=== PATIENT | female | born 1955 | race Caucasian/White ===

== ENCOUNTER → 2016-06-17 | Outpatient (CLI) | payer OTHER ==
[~2016-06-17] MED LIST: ALEN70TA4 PO; ASCO10003 PO; CONJ0.453 PO; GABA-112 PO; HYDR0.5T PO; IMT100 PO; MISCCAP80 PO; NORT10CA2 PO
--- NOTE | 2016-06-18 16:41 | MAMMOGRAPHY REPORT ---
BILATERAL DIGITAL SCREENING MAMMOGRAM TOMOSYNTHESIS WITH CAD: 06/17/2016 CLINICAL HISTORY: Routine screening. Patient has no complaints. TECHNIQUE: Breast tomosynthesis in addition to standard 2D mammography was performed. Current study was also evaluated with a Computer Aided Detection (CAD) system. COMPARISON: Comparison is made to exams dated: 05/20/2015 mammogram, 05/19/2013 mammogram - [facility], and 02/02/2008. BREAST COMPOSITION: The tissue of both breasts is heterogeneously dense, which may obscure small ma sses. FINDINGS: There is a possible round 8 mm mass within the right superior breast on the MLO view only , likely located laterally based on the tomosynthesis localizer bar. Recommend spot compression sylvia osynthesis views and possible breast ultrasound for further evaluation. The remainder of both breasts are stable compared to prior exams, without suspicious masses, calcifi cations, or areas of architectural distortion noted. Scattered bilateral benign-appearing calcifica tions are again noted. Left superior breast asymmetry is stable. IMPRESSION: ACR BI-RADS CATEGORY 0: INCOMPLETE EVALUATION: NEED ADDITIONAL IMAGING EVALUATION Possible right superior breast mass, for which additional imaging evaluation is recommended. The pa tient will be called to schedule an appointment. Approximately 10% of breast cancers are not detected with mammography. A negative mammographic repor t should not delay biopsy if a clinically suggestive mass is present. Oly Javier M.D. /:06/18/2016 16:12:53 Vest Front Presser: Cecile AKINS(Ashok)(Randal), [facility] letter sent: Addl Imaging 0 BI-RADS Code: ACR BI-RADS Category 0: Incomplete Evaluation: Need Additional Imaging Evaluation
== END | disposition home or self-care (01) ==
LOC: C.MAMM 17:01
PROVIDERS: ATTEND Obstetrics & Gynecology
DX: Z12.31 Encounter for screening mammogram for malignant neoplasm of breast (principal); N63 Unspecified lump in breast

== ENCOUNTER → 2016-07-02 | Outpatient (CLI) | payer OTHER ==
--- NOTE | 2016-07-02 12:37 | MAMMOGRAPHY REPORT ---
UNILATERAL RIGHT DIGITAL DIAGNOSTIC MAMMOGRAM TOMOSYNTHESIS AND TARGETED RIGHT ULTRASOUND: 07/02/2016 CLINICAL HISTORY: Callback from screening mammogram for right breast asymmetry. TECHNIQUE: Breast tomosynthesis in addition to standard 2D mammography was performed. Spot gisella mimi right CC and MLO 2-D and tomosynthesis images were obtained. COMPARISON: Comparison is made to exams dated: 06/17/2016 mammogram, 05/20/2015 mammogram, 3 mammogram - [facility], and 02/02/2008. BREAST COMPOSITION: The tissue of the right breast is heterogeneously dense, which may obscure smal l masses. FINDINGS: The previously described nodular asymmetry seen within the right superior breast on the ML O view does not clearly persist on the spot compression views, although it could be obscured by supe rimposed breast tissue. No suspicious masses or areas of architectural distortion are noted on the additional views. Targeted ultrasound was performed of the right upper outer quadrant in the region of the mammographi c asymmetry. In the right breast at 10:00, 2 cm from the nipple, there is an oval anechoic circumsc ribed 5 x 3 x 4 mm mass, consistent with a benign simple cyst. In the right breast at 10:00, 6 cm f rom the nipple, there is an oval hypoechoic circumscribed 7 x 3 x 5 mm mass, which is probably benig n and may represent a complicated cyst versus a solid mass such as fibroadenoma. In the right breas t at 10:00, 5 cm from the nipple, there is an oval anechoic circumscribed 2 x 3 mm masses, consisten t with a benign simple cyst. In the right breast at 9:00, 8 cm from the nipple, there is an oval ci rcumscribed anechoic mass with a few thin internal septations, measuring 6 x 3 x 5 mm. This is prob ably benign and likely represents a mildly complicated cyst. This mass may correlate with the initi al mammographic asymmetry. No suspicious solid masses were evident. IMPRESSION: ACR-BI-RADS CATEGORY 3: PROBABLY BENIGN, TARGETED ULTRASOUND ACR-BI-RADS CATEGORY 3: SC OBABLY BENIGN Multiple small circumscribed masses in the right upper outer quadrant on ultrasound, some of which a re benign simple cysts and others of which are probably benign and likely represent complicated cyst s. The right 9:00 complicated cyst may correspond with the initial mammographic asymmetry. Recomme nd follow-up diagnostic tomosynthesis mammograms and ultrasound of the right breast in 6 months to c onfirm stability. The patient has been verbally notified of the results. Approximately 10% of breast cancers are not detected with mammography. A negative mammographic repor t should not delay biopsy if a clinically suggestive mass is present. Oly Javier M.D. ah/:07/02/2016 08:39:17 Steam Bone Press Tender: Anitra AKINS(R)(M), [facility] letter sent: Follow Up Recommended 3 BI-RADS Code: ACR-BI-RADS Category 3: Probably Benign Ultrasound BI-RADS: ACR-BI-RADS Category 3: P robably Benign
== END | disposition home or self-care (01) ==
LOC: C.MAMM 08:08
PROVIDERS: ATTEND Obstetrics & Gynecology
DX: R92.8 Other abnormal and inconclusive findings on diagnostic imaging of breast (principal); N60.01 Solitary cyst of right breast

== ENCOUNTER → 2017-01-06 | Outpatient (CLI) | payer OTHER ==
--- NOTE | 2017-01-06 15:19 | MAMMOGRAPHY REPORT ---
UNILATERAL RIGHT DIGITAL DIAGNOSTIC MAMMOGRAM TOMOSYNTHESIS WITH CAD AND TARGETED RIGHT ULTRASOUND: CLINICAL HISTORY: Follow-up of an 8 mm nodular asymmetry in the posterior right breast, along the pos terior nipple line on the MLO view, and benign-appearing masses in the right upper outer quadrant on ultrasound. TECHNIQUE: Right breast tomosynthesis in addition to standard 2D mammography was performed. Current andriy casey was also evaluated with a Computer Aided Detection (CAD) system. COMPARISON: Comparison is made to exams dated: 07/02/2016 ultrasound, 07/02/2016 mammogram, 06/17/2016 ma mmogram, 05/20/2015 mammogram, 05/19/2013 mammogram - [facility], and 02/02/2008. BREAST COMPOSITION: The tissue of the right breast is heterogeneously dense, which may obscure small masses. FINDINGS: The previously observed 8mm nodular asymmetry in the posterior right breast, along the pos terior nipple line on the MLO view is less conspicuous comparing to the 06/17/2016 screening mammogra m. On the corresponding tomosynthesis images, no definite persistent mass is identified in that loca tion. No other obvious mass, focal area of architectural distortion or new suspicious microcalcifica tions are identified in the right breast. There are stable scattered groupings of faint punctate julio rocalcifications throughout the right breast. Targeted ultrasound was performed in the right upper outer quadrant. In the 10:00 axis, 610 m from t he nipple, there is an oval parallel circumscribed hypoechoic solid versus cystic mass measuring 4.1 x 2.9 x 4.9 mm. In the 9:00 axis, 610 m from the nipple, a lobulated anechoic benign simple cyst is identified measuring 4.7 x 2.7 x 3.8 mm. Another lobulated anechoic cyst is identified in the right 9:00 breast, 6 cm from the nipple, measuring 4.4 x 2.4 x 4.2 mm. No suspicious solid mass is identif ied. When comparing to the prior ultrasound, the mass in the 10:00 axis does not appear significantl y changed, given slight differences in measuring technique. It previously measured 6.7 x 2.6 x 4.9 m m. The mass in the 9:00 right breast, 6 cm from the nipple was previously labeled as 8 cm from the n ipple and this has slightly decreased in size, confirming benignity. IMPRESSION: ACR-BI-RADS CATEGORY 3: PROBABLY BENIGN, TARGETED ULTRASOUND ACR-BI-RADS CATEGORY 3: PRO BABLY BENIGN 1. Less conspicuous 8mm nodular asymmetry in the posterior right breast on the MLO view, without cor responding tomosynthesis abnormality, suggesting benignity. No other new suspicious abnormality is s een in the right breast mammographically. 2. There are scattered cysts in the right upper outer quadrant on ultrasound, compatible with fibroc ystic changes. One of the benign-appearing circumscribed parallel masses in the 10:00 axis appears m ore solid, and therefore longer stability is needed. Another six-month follow-up targeted right jeanne st ultrasound with attention to the 10:00 axis is recommended. 3. At the time of next six-month follow-up, bilateral mammography will also be due. These results and recommendations were discussed with the patient at the time of the exam. She tenta tively scheduled the appointment prior to leaving our department. Approximately 10% of breast cancers are not detected with mammography. A negative mammographic report should not delay biopsy if a clinically suggestive mass is present. Cindy Gaming M.D. ay/:01/06/2017 09:34:02 Net Developer: Padmini Richardson, [facility] letter sent: Follow Up Recommended 3 BI-RADS Code: ACR-BI-RADS Category 3: Probably Benign Ultrasound BI-RADS: ACR-BI-RADS Category 3: Pr obably Benign
== END | disposition home or self-care (01) ==
LOC: C.MAMM 08:09
PROVIDERS: ATTEND Obstetrics & Gynecology
DX: N64.89 Other specified disorders of breast (principal); N60.01 Solitary cyst of right breast

== ENCOUNTER → 2017-05-03 | Outpatient (CLI) | payer OTHER | END | disposition home or self-care (01) | LOC: C.MAMM 08:02 | PROVIDERS: ATTEND Obstetrics & Gynecology | DX: Z13.820 Encounter for screening for osteoporosis (principal); M85.851 Other specified disorders of bone density and structure, right thigh; M85.852 Other specified disorders of bone density and structure, left thigh ==

== ENCOUNTER → 2017-07-12 | Outpatient (CLI) | payer OTHER ==
[~2017-07-12] MED LIST changes: -ALEN70TA4 PO; +CHOL1000 PO; +DICL-201 PO; -NORT10CA2 PO; +voltaren gel
--- NOTE | 2017-07-12 14:51 | MAMMOGRAPHY REPORT ---
BILATERAL DIGITAL DIAGNOSTIC MAMMOGRAM TOMOSYNTHESIS WITH CAD AND TARGETED RIGHT ULTRASOUND: 8 CLINICAL HISTORY: 61-year-old woman presents for follow-up of probably benign findings identified in the right upper outer quadrant. She was initially called back from screening for an 8 mm round nodul ar asymmetry in the posterior right breast on the MLO view. Benign-appearing cystic and solid versus cystic masses were seen in the right upper outer quadrant on ultrasound. Also due for bilateral osvaldo ual exam. TECHNIQUE: Bilateral breast tomosynthesis in addition to standard 2D mammography was performed. Curre nt study was also evaluated with a Computer Aided Detection (CAD) system. COMPARISON: Comparison is made to exams dated: 01/06/2017 ultrasound, 01/06/2017 mammogram, 07/02/2016 m ammogram, 06/17/2016 mammogram, 05/20/2015 mammogram, and 05/19/2013 mammogram - [facility]. BREAST COMPOSITION: There are scattered areas of fibroglandular density in both breasts. FINDINGS: The previously observed 8mm nodular asymmetry in the posterior right breast along the poste rior nipple line on the MLO view is no longer seen, suggesting this could of represented normal overl apping tissue or a cyst that has decreased. Currently, no new suspicious masses, calcifications, are as of architectural distortion or asymmetries are seen bilaterally. There is a stable focal asymmetr y in the upper outer posterior left breast, that is unchanged dating back to at least 2007, therefore most likely the patient's baseline glandular pattern. Targeted ultrasound was performed in the upper outer quadrant of the right breast to reevaluate the b enign-appearing cystic and solid versus cystic masses, particularly in the 10:00 axis. In the right 10:00 axis, 67 m from the nipple, there is an oval parallel circumscribed hypoechoic solid appearing mass with thin tubular structure extending to the lateral aspect. This mass visually looks similar d ating back to at least 07/02/2016. It measures 4.5 x 2.3 x 4.6 mm. This has not significantly hoffmann ed dating back to the prior ultrasound from June 2016 at which time it measured 6.7 x 2.6 x 4.9 m m. Another 12 month follow-up is recommended to ensure at least 2 years of stability to confirm cruz gnity. No other suspicious solid or cystic mass is identified. Currently, there are fewer cysts in the 9:00 and 10:00 axes when comparing to the prior ultrasounds. IMPRESSION: ACR-BI-RADS CATEGORY 3: PROBABLY BENIGN, TARGETED ULTRASOUND ACR-BI-RADS CATEGORY 3: PRO BABLY BENIGN 1. An 8 mm rounded nodular asymmetry in the posterior right breast along the posterior nipple line o n the MLO view is no longer seen, confirming benignity. Currently, no suspicious mammographic abnorm ality is identified. 2. There is a stable benign-appearing solid, possibly intraductal mass in the 10:00 right breast, 6 cm from the nipple, that is unchanged in size dating back to at least 07/02/2016. Another 12 month f ollow-up targeted ultrasound is recommended to ensure at least 2 years of stability to confirm benign ity. These results and recommendations were discussed with the patient at the time of the exam. She tenta tively scheduled the follow-up appointment prior to leaving our department. Approximately 10% of breast cancers are not detected with mammography. A negative mammographic report should not delay biopsy if a clinically suggestive mass is present. Cindy Gaming M.D. ay/:07/12/2017 10:05:53 City Editor: Cecile SHARIF)(M), [facility] letter sent: Follow Up Recommended 3 BI-RADS Code: ACR-BI-RADS Category 3: Probably Benign Ultrasound BI-RADS: ACR-BI-RADS Category 3: Pr obably Benign
== END | disposition home or self-care (01) ==
LOC: C.MAMM 08:11
PROVIDERS: ATTEND Obstetrics & Gynecology
DX: N64.89 Other specified disorders of breast (principal); N63.10 Unspecified lump in the right breast, unspecified quadrant

== ENCOUNTER → 2017-12-20 | Outpatient (CLI) | payer OTHER | END | disposition home or self-care (01) | LOC: C.PAPS 10:41 | PROVIDERS: ATTEND Obstetrics & Gynecology | DX: Z12.4 Encounter for screening for malignant neoplasm of cervix (principal) ==

== ENCOUNTER 2018-09-05 07:55 | Observation (INO) ==
--- NOTE | 2018-08-16 09:07 | Anesthesiology Consultation ---
Date of Service August 16, 2018 Assessment & Plan (1) Encounter for pre-operative examination: Chart Review Chart Review: Acceptable Risk for Surgery and Patient NOT seen in Pre Admission Testing History Surgery Operation Date: 08/24/18 08:20 Proposed Procedures p Left Breast Lumpectomy with sentinel Lymph Node Biopsy (Injection Only) - Artem Boogie MD, FACS Height/Weight Height: 5 ft 8 in Weight: 78.925 kg Allergies Allergy/AdvReac Type Severity Reaction Status Date / Time Sulfa (Sulfonamide Allergy Severe severe Verified 08/03/18 16:00 Antibiotics) muscle cramping rofecoxib Allergy Mild SWELLING Verified 08/03/18 16:00 Medications Home Medications Medication Instructions Recorded Confirmed Last Taken ascorbic acid (vitamin C) 1,000 mg PO BID 08/03/18 08/03/18 Unknown cholecalciferol (vitamin D3) 1,000 unit PO QAM 08/03/18 08/03/18 Unknown [Vitamin D3] diclofenac sodium [Voltaren] 2 g TOPICAL UD PRN 08/03/18 08/03/18 Unknown gabapentin 200 mg PO BID 08/03/18 08/03/18 Unknown hydroxychloroquine [Plaquenil] 200 mg PO BID 08/03/18 08/03/18 Unknown lactobacillus combination no.4 3,000 mmu cells PO 3XWK 08/03/18 08/03/18 Unknown [Probiotic] naproxen [Naprosyn] 500 mg PO QAM 08/03/18 08/03/18 Unknown sumatriptan succinate 100 mg PO UD PRN 08/03/18 08/03/18 Unknown Past Medical History Medical History Cancer LEFT BREAST 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
[~2018-09-05 07:55] MED LIST changes: -ASCO10003 PO; +CEFAZOLIN 2000MG 2,000 MG/15 ML SYR IV SCH; -CHOL1000 PO; -CONJ0.453 PO; -DICL-201 PO; -GABA-112 PO; -HYDR0.5T PO; -IMT100 PO; +LR 15ML/HR IV SCH; -MISCCAP80 PO; -voltaren gel
--- NOTE | 2018-09-05 09:13 | Nuclear Medicine Report ---
NM sentinel node inject only (left breast) CLINICAL HISTORY: Left breast carcinoma COMPARISON STUDY: No previous studies for comparison. FINDINGS: A timeout was performed. The patient's left periareolar region was prepped. 5 periareolar intradermal injections were performed utilizing a total dose of 0.5 mCi of technetium 9 9m Lymphoseek. The patient was sent to the operating room for intraoperative localization. IMPRESSION: A left breast lymphoscintigraphy injection was performed Electronically signed by: Willy Quarles M.D. 09/05/2018 9:12 AM
[2018-09-05] MEDS ORDERED: NALOXONE HCL 0.4 MG/1 ML VIAL/CARP IV PRN (11:09)
[2018-09-05] MEDS ORDERED: ePHEDrine sulfate 50 MG/ML AMP IV PRN (11:09)
[2018-09-05] MEDS ORDERED: LABETALOL HCL IV 5 MG/ML 20ML IV PRN (11:09)
[2018-09-05] MEDS ORDERED: PROMETHAZINE HCL 12.5 MG in SODIUM CHLORIDE 0.9% 50 ML IV PRN ×2 (11:09→15:37)
[2018-09-05] MEDS ORDERED: ATROPINE SULFATE 0.1 MG/ML 10ML SYR IV PRN (11:09)
[2018-09-05] MEDS ORDERED: ONDANSETRON INJ 2 MG/ML 2 ML VIAL IV PRN ×2 (11:09→15:37)
[2018-09-05] MEDS ORDERED: FLUMAZENIL 0.1 MG/1 ML 10 ML VIAL IV PRN (11:09)
[2018-09-05] MEDS ORDERED: fentaNYL citrate 100 MCG/2 ML VIAL ONE ×2 (11:31→12:54)
[2018-09-05] MEDS ORDERED: MIDAZOLAM HCL 1 MG/ML 2ML VIAL ONE (11:31)
[2018-09-05] MEDS ORDERED: LIDOCAINE HCL 2% 2 ML VIAL/AMP(20MG/ML) INFIL ONE (11:33)
[2018-09-05] MEDS ORDERED: PROPOFOL IV EMULSION 10 MG/ML 20 ML VIAL IV ONE (11:33)
[2018-09-05] MEDS ORDERED: SCOPOLAMINE 1.5 MG TDSY ONE (11:40)
[2018-09-05] MEDS ORDERED: BUPIVACAINE 0.5 % 5 MG/1 ML MPF 30ML VIAL ONE (11:54)
[2018-09-05] MEDS ORDERED: ISOSULFAN BLUE 10 MG/ML VIAL 5 ML ONE (11:54)
[2018-09-05] MEDS ORDERED: METOCLOPRAMIDE HCL INJ 5 MG/ML 2 ML VIAL ONE (11:57)
[2018-09-05] MEDS ORDERED: ONDANSETRON INJ 2 MG/ML 2 ML VIAL ONE (11:57)
[2018-09-05] MEDS ORDERED: DEXAMETHASONE SOD INJ 4 MG/ML VIAL ONE (11:57)
[2018-09-05] MEDS ORDERED: raNITIdine HCl 25 MG/ML VIAL ONE (11:57)
[2018-09-05] MEDS ORDERED: METHYLENE BLUE 0.5% 10 ML VIAL ONE (12:02)
[2018-09-05] MEDS ORDERED: PHENYLEPHRINE HCL 10 MG/ML VIAL ONE (13:10)
[2018-09-05] MEDS ORDERED: ACETAMINOPHEN 1,000 MG/100 ML VIAL IV ONE ×2 (13:43→17:00)
--- NOTE | 2018-09-05 13:43 | Operative Report ---
Post Operative Report Pre & Post Diagnosis Operation Date: 09/05/18 12:10 Pre-Op Diagnosis: Left Breast Cancer Post-Op Diagnosis: Left Breast Cancer Procedure Operation Date: 09/05/18 12:10 Actual Procedures p Left Breast Lumpectomy with Crete Lymph Node Biopsy with Needle Localization(Left) - Artem Boogie MD, FACS Surgeon Artem Boogie MD, FACS Restuarant Crew Worker Randal Moore Estimated Blood Loss 20 Findings Consistent with Post-Op Diagnosis Specimens Lt axillary LN and Lt breast tissue Description of Procedure see dictation I attest to the content of the Intraoperative Record and any orders documented therein. Any exceptions are noted below.
[2018-09-05] MEDS: fentaNYL citrate 100 MCG/2 ML VIAL IV PRN ×4 (14:02→14:41)
--- NOTE | 2018-09-05 14:57 | Mammography Report ---
NEEDLE LOCALIZATION LEFT BREAST: 09/05/2018 CLINICAL HISTORY: 63-year-old woman with recent biopsy-proven carcinoma in the left 12:00 posterior b reast. She presents for preoperative localization prior to lumpectomy. Also history of benign biopsie s in the right 10:00 breast and left lower outer quadrant. COMPARISON: MRI guided biopsy and post procedure mammograms dated 08/31/2018, bilateral breast biopsie s and post procedure mammograms dated 07/22/2018, diagnostic mammograms and ultrasound 07/12/2018, 2017, 01/06/2017. PATIENT CONSENT: The risks of the procedure were explained to the patient and informed consent was ob tained. The patient denied eating or drinking anything this morning that would preclude anesthesia. She also denied allergy to lidocaine. A timeout was performed and the left breast was confirmed as a site for preoperative localization. PROCEDURE DESCRIPTION: Prior left breast imaging was reviewed, including diagnostic mammograms, ultra sound and ultrasound-guided core biopsy in which the left 12:00 breast mass was identified. The ribb on-shaped biopsy clip in the 12:00 posterior left breast is the intended target for preoperative loca lization. With the patient in the seated position, the left breast was placed in CC from above [facility]. A tomosynthesis copy was obtained which demonstrates the ribbon-shaped biopsy clip within th e localization window of an alphanumeric grid. The skin of the superior left breast was cleansed wit h alcohol. 1% buffered Lidocaine without epinephrine was administered as local anesthesia. A 7.5cm H awkins II needle and wire combination was inserted into the breast. Optimal positioning was confirmed and the wire was locked in place, leaving both the needle and wire within the breast, as per surgeon 's preference. The entire procedure including approach and needle length were discussed with the ope rating surgeon prior to surgery. The patient tolerated the procedure well and there was no immediate complication. She was escorted and transferred to the main hospital in satisfactory condition. A surgical specimen radiograph was obtained which demonstrates a portion of the localizing needle and wire as well as ribbon-shaped biopsy clip centrally within the specimen, consistent with successful preoperative localization and subsequent surgical excision. Final surgical pathology is pending. IMPRESSION: NEEDLE LOCALIZATION Status post preoperative needle and wire localization for biopsy-proven carcinoma in the 12:00 news agent ior left breast. The imaged specimen includes the intended abnormality. Cindy Gaming M.D. ay/:09/05/2018 13:30:55 Transmission Worker: RT Davis(Ashok)(M), [facility]
--- NOTE | 2018-09-05 14:57 | Mammography Report ---
SPECIMEN: 09/05/2018 CLINICAL HISTORY: Left breast surgical specimen. Please refer to the report from left breast needle localization performed at the same time for full d etail. IMPRESSION: SPECIMEN Please refer to the report from left breast needle localization performed at the same time for full d etail. Cindy Gaming M.D. ay/:09/05/2018 13:31:49 Tool And Die Maker/Designer: RT Davis(Ashok)(M), [facility]
--- NOTE | 2018-09-05 15:15 | Anesthesiology Progress Note ---
Date of Service September 05, 2018 Anesthesia Post Procedure Vital Signs Vital Signs: Temp Pulse Pulse Resp BP BP Pulse Ox 09/05/18 14:33 36.7 C 80 16 115/70 98 09/05/18 14:25 72 19 130/73 98 09/05/18 14:20 69 19 132/76 100 09/05/18 14:15 73 17 130/75 100 09/05/18 14:10 78 21 130/77 100 09/05/18 14:05 76 17 128/77 100 09/05/18 14:02 81 15 133/72 100 09/05/18 14:00 78 13 100 09/05/18 13:56 36.1 C L 80 82 16 121/53 L 121/53 L 100 09/05/18 13:55 19 96 09/05/18 09:22 36.4 C L 73 18 129/77 98 Pain Intensity Left Lateral Breast: Pain Intensity: 2 Notes Mental Status: alert / awake / arousable Patient Amnestic to Procedure: Yes Nausea / Vomiting: adequately controlled Pain: adequately controlled Airway Patency, RR, SpO2: stable & adequate BP & HR: stable & adequate Hydration State: stable & adequate Anesthetic Complications: no major complications apparent
--- NOTE | 2018-09-05 15:30 | Operative Report ---
DATE OF OPERATION: 09/05/2018 NAME OF OPERATION: Left lumpectomy with sentinel lymph node biopsy. PREOPERATIVE DIAGNOSIS: Left breast cancer. POSTOPERATIVE DIAGNOSIS: Left breast cancer. STAFF SURGEON: Artem Boogie MD FRAMING MACHINE TENDER: Fern Moore PA-C. ANESTHESIA: General. DESCRIPTION OF PROCEDURE: The patient was brought in the operating room and placed on the operating table in supine position. Her left arm was extended under an arm board. Her left breast and axilla were prepped and draped in usual fashion. She had a needle placed in the upper left breast and was injected for sentinel lymph node biopsy. My entry level administrative assistant, Fern Moore helped with prepping, draping, excision of the breast and axillary tissue and closure of the wounds. Initially, incision was made in the left axilla using 0.5% plain Marcaine to anesthetize the skin. Dissection was carried deeply down into the axilla, identifying the sentinel lymph node which was large. It was sent for frozen section. The frozen section was negative. During the frozen section, we performed lumpectomy making incision below where the needle had been placed transversely, carrying dissection down, identifying the needle and transecting the needle. The tissue then was dissected from around the needle down very deep, almost to the muscle. The initial tissue was taken with the needle anterior, the long silk suture lateral, short silk suture medial and plain suture was inferior. At this point, additional inferior tissue was taken which was where most of the more dense tissue was. This tissue was marked with a long silk suture lateral and short silk suture medial. This deep tissue on these specimens were taken down to the muscle. Additional superior tissue was taken, again marked with long silk suture lateral, short silk suture medial and methylene blue new margin. Again, taken down to the muscle. Clips were placed at the level where the tumor was near the muscle and then the deep tissue reapproximated using 2-0 plain suture in both places and then the skin in the left axilla using 4-0 nylon suture in the left breast using subcuticular 4-0 Monocryl and Steri-Strips applied. The patient was transferred to recovery room in stable condition. I attest to the content of the Intraoperative Record and any orders documented therein. Any exception s are noted below.
[2018-09-05] MEDS ORDERED: ACETAMINOPHEN 325 MG TAB PO PRN (15:37)
[2018-09-05] MEDS ORDERED: PROMETHAZINE HCL 25 MG in SODIUM CHLORIDE 0.9% 50 ML IV PRN (15:37)
[2018-09-05] MEDS ORDERED: TRAMADOL HCL 50 MG TABLET PO PRN (15:37)
[2018-09-05] MEDS ORDERED: HYDROmorphone INJ 0.5 MG/0.5 ML SYR IV PRN (15:37)
[2018-09-05] MEDS ORDERED: HYDROmorphone INJ 1 MG/ML SYRINGE IV PRN (15:37)
[2018-09-05] MEDS ORDERED: SODIUM CHLORIDE 0.9% 1000ML 1,000 ML IV SCH ×2 (16:00→16:15)
--- NOTE | 2018-09-05 17:27 | Consultation ---
Date of Consultation September 05, 2018 Assessment & Plan (1) History of lumpectomy of left breast: Status post left breast lumpectomy and sentinel lymph node dissection on 09/05 Postoperatively doing very well -IV fluids as per surgery -Postoperative management as per surgery -Pain control with Tylenol and ibuprofen as needed, tramadol as needed Antiemetics as needed Wound care as per surgery -Await pathology (2) Breast cancer: Infiltrating ductal carcinoma left breast, estrogen and progesterone receptor positive current HER-2 negative -Continue follow-up with surgeon and/or oncology (3) Migraine: Ibuprofen as needed, no current migraine (4) Inflammatory arthritis: Stable at this time -Continue Plaquenil and gabapentin at home doses (5) DVT prophylaxis: SCDs Disposition-remain in hospital overnight will likely discharge home tomorrow Hospitalist service will sign off at this time as the patient is quite medically stable History of Present Illness Reason for Consultation: Postop medical management Requesting Physician: Dr. Boogie Attending Physician: Artem Boogie MD, [facility] History of Present Illness This patient is a 63-year-old female with a history of inflammatory arthritis, migraines, and breast cancer, who is here for a left breast lumpectomy and sentinel lymph node biopsy. She just returned from surgery and is having some moderate pain in the left chest. She denies nausea or vomiting. Denies chest pressure or shortness of breath. She is feeling thirsty. Her last bowel movement was this morning she has no problems with constipation. Allergies Allergy/AdvReac Type Severity Reaction Status Date / Time Sulfa (Sulfonamide Allergy Severe severe Verified 09/05/18 09:17 Antibiotics) muscle cramping rofecoxib Allergy Mild SWELLING Verified 09/05/18 09:17 Home Medications Home Medications Medication Instructions Recorded Confirmed Type ascorbic acid (vitamin C) 1,000 mg PO BID 08/03/18 09/05/18 History cholecalciferol (vitamin D3) 1,000 unit PO QAM 08/03/18 09/05/18 History [Vitamin D3] diclofenac sodium [Voltaren] 2 g TOPICAL UD PRN 08/03/18 09/05/18 History gabapentin 200 mg PO BID 08/03/18 09/05/18 History hydroxychloroquine [Plaquenil] 200 mg PO BID 08/03/18 09/05/18 History lactobacillus combination no.4 3,000 mmu cells PO 3XWK 08/03/18 09/05/18 History [Probiotic] naproxen [Naprosyn] 500 mg PO QAM 08/03/18 09/05/18 History sumatriptan succinate 100 mg PO UD PRN 08/03/18 09/05/18 History diazepam 5 mg tablet 5 mg PO .COMPLEX #2 tab 09/01/18 Rx Patient History Medical History Breast cancer Infiltrating ductal carcinoma of left breast Cancer LEFT BREAST Inflammatory arthritis ON PLAQUENIL Migraine HX Surgical History History of bilateral tubal ligation History of cholecystectomy History of dilatation and curettage WITH POLYPECTOMY History of sinus surgery Family History Father Family hx of colon cancer Aunt Family history of diabetes mellitus Social History Preferred Language: Mongolian Communication Ability: Effective Bar Staff Required: No Beliefs That Will Affect Care: None Current Living Situation: Spouse Other Information That Helps Us Care for You: No Feels Safe at Home: Yes Safety Concerns: Feels Safe At This Time Smoking Status: Never smoker Hx Alcohol Use: No Hx Substance Use: No Review of Systems 14 point review of systems otherwise negative Physical Exam Vital Signs (Past 24 Hours): Last Vital Signs Temp 36.8 C 09/05/18 16:34 Pulse 74 09/05/18 16:34 Resp 16 09/05/18 16:34 BP 110/65 09/05/18 16:34 Pulse Ox 99 09/05/18 16:34 Constitutional: WD/WN, vitals as above Eyes: PERRL, conjunctivae normal, anicteric sclerae ENMT: external ear and nose normal, oropharynx normal Neck: trachea midline, no thyromegaly Respiratory: normal respiratory effort, lungs clear to auscultation Cardiovascular: RRR, no murmur, no edema Chest (Breasts): normal inspection/palpation of breasts (Left breast with dressing in place clean dry and intact) Gastrointestinal (Abdomen): normal bowel sounds, soft, nontender, no hepatosplenomegaly Musculoskeletal: Extremities: extremities normal to inspection; no cyanosis and no clubbing Skin: no rashes, warm and dry Neurologic: moves all extremities and awake; no focal motor deficits Psychiatric: A+Ox3, euthymic affect
[2018-09-05] MEDS: CEFAZOLIN 1000MG 1,000 MG/7.5 ML SYR IV SCH (20:34)
[2018-09-05] MEDS: HYDROXYCHLOROQUINE SULFATE 200 MG TAB PO SCH (20:35)
[2018-09-05] MEDS: GABAPENTIN 100 MG CAP PO SCH (20:35)
[2018-09-06] MEDS: IBUPROFEN 600 MG TAB PO PRN ×2 (00:20→09:33)
[2018-09-06] MEDS: CEFAZOLIN 1000MG 1,000 MG/7.5 ML SYR IV SCH (03:49)
--- NOTE | 2018-09-06 07:46 | Anesthesiology Progress Note ---
Date of Service September 06, 2018 Anesthesia Post Procedure Vital Signs Vital Signs: Temp Pulse Pulse Pulse Resp BP BP 09/06/18 03:17 37.3 C 76 14 09/05/18 23:34 37.2 C 76 16 09/05/18 18:35 37.0 C 95 H 18 109/67 09/05/18 17:39 37.4 C 81 18 118/75 09/05/18 16:34 36.8 C 74 16 110/65 09/05/18 16:03 36.6 C 76 16 109/57 L 09/05/18 14:33 36.7 C 80 16 115/70 09/05/18 14:25 72 19 130/73 09/05/18 14:20 69 19 132/76 09/05/18 14:15 73 17 130/75 09/05/18 14:10 78 21 130/77 09/05/18 14:05 76 17 128/77 09/05/18 14:02 81 15 133/72 09/05/18 14:00 78 13 09/05/18 13:56 36.1 C L 80 82 16 121/53 L 121/53 L 09/05/18 13:55 19 09/05/18 09:22 36.4 C L 73 18 129/77 BP Pulse Ox 09/06/18 03:17 104/62 97 09/05/18 23:34 112/67 94 09/05/18 18:35 94 09/05/18 17:39 99 09/05/18 16:34 99 09/05/18 16:03 97 09/05/18 14:33 98 09/05/18 14:25 98 09/05/18 14:20 100 09/05/18 14:15 100 09/05/18 14:10 100 09/05/18 14:05 100 09/05/18 14:02 100 09/05/18 14:00 100 09/05/18 13:56 100 09/05/18 13:55 96 09/05/18 09:22 98 Pain Intensity Left Lateral Breast: Pain Intensity: 3 Left Upper Lateral Back: Pain Intensity: 0 Notes Mental Status: alert / awake / arousable and participated in evaluation Patient Amnestic to Procedure: Yes Nausea / Vomiting: adequately controlled Pain: adequately controlled Airway Patency, RR, SpO2: stable & adequate BP & HR: stable & adequate Hydration State: stable & adequate Anesthetic Complications: no major complications apparent
[2018-09-06 07:55] VITALS: TEMP 97.7; O2SAT 96
[2018-09-06 08:50] VITALS: BP 109/67; PULSE 95
[2018-09-06] MEDS: GABAPENTIN 100 MG CAP PO SCH (09:28)
[2018-09-06] MEDS: HYDROXYCHLOROQUINE SULFATE 200 MG TAB PO SCH (09:28)
--- NOTE | 2018-09-06 11:24 | Discharge Summary ---
DATE OF ADMISSION: 09/05/2018 PRINCIPAL DIAGNOSIS: Left breast cancer. PROCEDURES: The patient underwent needle localization, left breast lumpectomy with sentinel lymph node biopsy. HISTORY OF PRESENT ILLNESS: The patient is a 63-year-old female with biopsy proven left breast cancer for surgery. She was brought into the hospital on 09/05/2018 where she underwent initial needle localization and breast injection and then left sentinel lymph node biopsy with left lumpectomy which she tolerated very well, has done well overnight and is felt stable for discharge home today to be followed in the surgical clinic next week.
== END 2018-09-06 11:34 | disposition home health service (06) ==
LOC: 3W 07:55 → ASU 07:55